=== PATIENT | female | born 1960 | race Caucasian/White ===

== ENCOUNTER 2017-01-07 15:06 | Inpatient (IN) | payer MEDICARE ==
[2017-01-07 15:40] LABS: BASOPHIL 0.1 % (0-2); EOSINOPHIL 0 % (0-5); HCT 39.1 % (37.0-47.0); HGB 12.8 g/dl (12.5-16.0); LYMPHOCYTE 6.3 % (15-48); MCH 26.4 pg (25.0-31.0); MCHC 32.7 g/dL (32.0-36.0); MCV 80.8 fL (78.0-100.0); MONOCYTE 3.8 % (0-12); MPV 11.7 fL (6.0-9.5); NEUTROPHIL 89.8 % (41-80); PLT 145 K/uL (150-400); RBC 4.84 M/uL (4.20-5.40)
[2017-01-07 15:42] LABS: WBC 17.9 K/uL (4.0-10.5)
[2017-01-07 16:02] LABS: ALBUMIN 3.9 g/dL (3.5-5.0); BILIRUBIN - TOTAL 0.2 mg/dL (0.1-1.0); CREATININE 0.8 mg/dL (0.5-1.0); GLOBULIN (CALCULATION) 3.4 g/dL (2.2-4.2); POTASSIUM 4.1 mmol/L (3.5-5.1); TOTAL PROTEIN 7.3 g/dL (6.4-8.3); TROPONIN T < 0.010 ng/mL
[2017-01-07 16:03] LABS: PRO-BNP 429 pg/mL (0-125)
[2017-01-07 18:17] LABS: LACTIC ACID 2.6 mmol/L (0.5-2.2)
[2017-01-07 20:20] LABS: BILIRUBIN NEGATIVE (NEGATIVE); BLOOD TRACE-INTACT Ery/uL (NEGATIVE); CLARITY CLEAR (CLEAR); COLOR YELLOW (YELLOW); GLUCOSE (U) NORMAL (NORMAL); KETONE (U) NEGATIVE (NEGATIVE); LEUKOCYTES NEGATIVE Leu/uL (NEGATIVE); NITRITE NEGATIVE (NEGATIVE); PROTEIN 1+ mg/dL (NEGATIVE); SPECIFIC GRAVITY >=1.030 (1.001-1.030); UROBILINOGEN 0.2 mg/dL (0.2-1.0)
[2017-01-08 04:26] LABS: HCT 37.4 % (37.0-47.0); MCH 26.5 pg (25.0-31.0); MCHC 32.1 g/dL (32.0-36.0); MCV 82.7 fL (78.0-100.0); MPV 11.6 fL (6.0-9.5); RBC 4.52 M/uL (4.20-5.40); RDW 17.2 % (11.5-14.0); WBC 15.1 K/uL (4.0-10.5)
[2017-01-08 04:33] LABS: INR 1.13 (0.9-1.2); PROTHROMBIN TIME 14.1 SECONDS (11.7-14.0); PTT 31.4 SECONDS (23.2-31.4)
[2017-01-08 04:53] LABS: ALBUMIN 3.5 g/dL (3.5-5.0); BILIRUBIN - TOTAL 0.2 mg/dL (0.1-1.0); CREATININE 0.7 mg/dL (0.5-1.0); GLOBULIN (CALCULATION) 2.5 g/dL (2.2-4.2); POTASSIUM 5.1 mmol/L (3.5-5.1)
--- NOTE | 2017-01-08 08:00 | NUR ---
DR. Ortiz AT BEDSIDE. READYING FOR INTUBATION. RAJAN, RN, SAMSON, RT, BON, RT. CAMI,RN ACCEPTING PT AND REPORT GIVEN.
--- NOTE | 2017-01-08 12:29 | NUR ---
01/08/17 0800: MD TO BEDSIDE FOR INTUBATION. RESPIRATORY CALLED AND ER NURSE NOTIFIED OF INTUBATION DUE TO WORSENING STATUS AND WORSENEING ABG. VITALS AT THIS TIME: BP: 135/87 HR: 78 O2% ON BIPAP: 94% RR: 30. ORDERED ETOMIDATE 10MG IV PUSH, MAURICE PIRES GAVE AT 0802, MAURICE GAVE ANOTHER 10MG IVP ETOMIDATE AT 0804 PER MD ORDER. AT 0806 10MG IV DIPRIVAN PUSH GIVEN PER ER NURSE. MD WAS NOT ABLE TO INTUBATE AT THIS TIME, ANESTHESIA CALLED, OMAR RM CAME TO FLOOR FOR INTUBATION. ET TUBE PLACED AT 0813 7.5ET TUBE, 23 AT LIP VENT SETTINGS INITIALLY: TV 550 PEEP: 5 FIO2: 100% AND RATE: 18 PER MD ORDER. PT PLACED ON DIPRIVAN GTT PER PROTOCOL FOR SEDATION. RASS -1 INITIALLY. RESTRAINTS APPLIED AT 0830 DUE TO PT PULLING AT ET TUBE. PT TOLERATED INTUBATION WELL.
[2017-01-09 04:06] LABS: HGB 11.6 g/dl (12.5-16.0); MCH 26.7 pg (25.0-31.0); MCHC 32.2 g/dL (32.0-36.0); MCV 82.8 fL (78.0-100.0); MPV 12.1 fL (6.0-9.5); RBC 4.35 M/uL (4.20-5.40); RDW 17.4 % (11.5-14.0); WBC 11.1 K/uL (4.0-10.5)
[2017-01-09 04:22] LABS: CREATININE 0.7 mg/dL (0.5-1.0); POTASSIUM 4.5 mmol/L (3.5-5.1)
[2017-01-10 03:58] LABS: HGB 11.7 g/dl (12.5-16.0); MCH 26.2 pg (25.0-31.0); MCHC 31.6 g/dL (32.0-36.0); MPV 11.1 fL (6.0-9.5); RBC 4.46 M/uL (4.20-5.40); RDW 17.3 % (11.5-14.0); WBC 8.3 K/uL (4.0-10.5)
[2017-01-10 04:17] LABS: ALBUMIN 3.2 g/dL (3.5-5.0); BILIRUBIN - DIRECT 0.2 mg/dL (0.0-0.2); BILIRUBIN - TOTAL 0.3 mg/dL (0.1-1.0); CREATININE 0.7 mg/dL (0.5-1.0); GLOBULIN (CALCULATION) 2.2 g/dL (2.2-4.2); POTASSIUM 4.4 mmol/L (3.5-5.1); TOTAL PROTEIN 5.4 g/dL (6.4-8.3)
== END 2017-01-10 17:36 | disposition other institution (70) | DRG 208 ==
LOC: FER 15:06 → FICU 16:44
PROVIDERS: Emergency Medicine; ADMIT Internal Medicine
PROC: 02HV33Z Insertion of Infusion Device into Superior Vena Cava, Percutaneous Approach (ICD-10-PCS; principal; 2017-01-08)
PROC: 5A1945Z Respiratory Ventilation, 24-96 Consecutive Hours (ICD-10-PCS; 2017-01-08)
PROC: 0BH17EZ Insertion of Endotracheal Airway into Trachea, Via Natural or Artificial Opening (ICD-10-PCS; 2017-01-08)
DX: J18.9 Pneumonia, unspecified organism (principal); J96.01 Acute respiratory failure with hypoxia; S27.309A Unspecified injury of lung, unspecified, initial encounter; J44.9 Chronic obstructive pulmonary disease, unspecified; E66.01 Morbid (severe) obesity due to excess calories; E66.9 Obesity, unspecified; I10 Essential (primary) hypertension; I87.2 Venous insufficiency (chronic) (peripheral); F32.9 Major depressive disorder, single episode, unspecified; F41.9 Anxiety disorder, unspecified; Z87.891 Personal history of nicotine dependence; M79.7 Fibromyalgia; G89.29 Other chronic pain; I49.9 Cardiac arrhythmia, unspecified
CPT/HCPCS: 31500; 36415; 36600; 71010; 71020; 74000; 80048; 80053; 80076; 80202; 81001; 81003; 82550; 82553; 82803; 82962; 83605; 83735; 83880; 84443; 84484; 85025; 85610; 85730; 87040; 87070; 87205; 87804; 87899; 92950; 93005; 94002; 94640; 94660; C9113; J0692; J1170; J1644; J1956; J2060; J2704; J2930; J3370